=== PATIENT | female | born 1960 | race American Indian/Alaskan Native ===

== ENCOUNTER 2021-07-24 00:08 | Emergency (ER) | payer MEDICAID ==
[~2021-07-24] VITALS: Ht 152.4 cm; Wt 75.0 kg
[2021-07-24 00:13] VITALS: BP 141/86
[2021-07-24] MEDS ORDERED: ondansetron 4mg rapidly disintigrating tab PO ONE (05:10)
[2021-07-24] MEDS ORDERED: buprenorphine/naloxone 8MG-2MG SUBlingual film SL ONE (05:11)
== END 2021-07-24 06:00 | disposition home or self-care (01) ==
LOC: ER 00:09
DX: F15.23 Other stimulant dependence with withdrawal (principal); Z90.49 Acquired absence of other specified parts of digestive tract; Z88.2 Allergy status to sulfonamides; Z88.8 Allergy status to other drugs, medicaments and biological substances
CPT/HCPCS: 99283

== ENCOUNTER 2021-07-29 12:22 | Emergency (ER) | payer MEDICAID ==
[~2021-07-29] VITALS: Ht 152.4 cm; Wt 65.9 kg
[2021-07-29 13:22] VITALS: BP 113/71
[2021-07-29 13:58] LABS: BASOPHILS # (AUTO) 0.1 X10'3 (0-0.2); BASOPHILS % (AUTO) 0.4 % (0-1); EOSINOPHILS # (AUTO) 0.2 X10'3 (0-0.9); EOSINOPHILS % (AUTO) 1.5 % (0-6); HEMATOCRIT 41.4 % (35.0-45.0); HEMOGLOBIN 13.6 g/dl (12.0-16.0); LYMPHOCYTES # (AUTO) 1.3 X10'3 (1.1-4.8); LYMPHOCYTES % (AUTO) 10.6 % (21-51); MEAN CORPUSCULAR HEMOGLOBIN 30.4 PG (27.0-31.0); MEAN CORPUSCULAR HGB CONC 32.8 g/dL (33.0-36.5); MEAN CORPUSCULAR VOLUME 92.9 FL (78-98); MONOCYTES # (AUTO) 0.4 X10'3 (0-0.9); MONOCYTES % (AUTO) 3.5 % (2-12); NEUTROPHILS # (AUTO) 10.3 X10'3 (1.8-7.7); PLATELET COUNT 201 X10'3 (140-440); RED BLOOD COUNT 4.46 X10'6 (4.20-5.60); RED CELL DISTRIBUTION WIDTH 13.3 % (11.5-14.5); WHITE BLOOD COUNT 12.3 X10'3 (4.5-11.0)
[2021-07-29 14:10] LABS: CLARITY,URINE CLEAR (Clear); COLOR,URINE YELLOW (Yellow); GLUCOSE, URINE NEGATIVE (Neg); KETONES,URINE NEGATIVE (Neg); LEUKOCYTE ESTERASE ,URINE TRACE (Neg); NITRITES, URINE NEGATIVE (Neg); OCCULT BLOOD,URINE NEGATIVE (Neg); PROTEIN,URINE NEGATIVE (Neg); URINE HCG NEGATIVE (NEG); UROBILINOGEN,URINE 0.2 E.U/dL (0.2-1.0)
[2021-07-29 14:11] LABS: ALANINE AMINOTRANSFERASE 206 U/L (12-78); ALBUMIN 4.2 G/DL (3.4-5.0); ALBUMIN/GLOBULIN RATIO 1.2 (1.1-1.5); ALKALINE PHOSPHATASE 358 IU/L (46-116); ANION GAP 10 (8-16); ASPARTATE AMINO TRANSFERASE 144 U/L (10-37); BILIRUBIN,TOTAL 1.1 MG/DL (0.1-1.0); BLOOD UREA NITROGEN 24 MG/DL (7-18); BUN/CREATININE RATIO 21.6 (6.6-38.0); CALCIUM 9.6 MG/DL (8.5-10.1); CHLORIDE 100 MMOL/L (99-107); CREATININE 1.11 MG/DL (0.40-0.90); GLUCOSE 101 MG/DL (70-104); LIPASE 65 U/L (73-393); POTASSIUM 4.1 MMOL/L (3.5-5.1); SODIUM 141 MMOL/L (135-145); TOTAL CARBON DIOXIDE 31.3 MMOL/L (24-32); TOTAL PROTEIN 7.7 G/DL (6.4-8.2); eGFR 50 ML/MIN
[2021-07-29 14:17] LABS: UA COLLECTION TYPE CLN CATCH MIDSTREAM
[2021-07-29 14:31] LABS: MUCUS STRANDS FEW /LPF (Neg); SQUAMOUS EPITHELIAL CELL,UR MANY /LPF (FEW)
[2021-07-29 14:32] LABS: BACTERIA,URINE 2+ /HPF (Neg); RBC,URINE 0-2 /HPF (0-2); WBC,URINE 0-4 /HPF (0-4)
[2021-07-29] MEDS ORDERED: ONDA4TAB12 PO (16:41)
[2021-07-29] MEDS ORDERED: ondansetron 4mg rapidly disintigrating tab PO ONE (16:45)
== END 2021-07-29 17:46 | disposition home or self-care (01) ==
LOC: ER 12:22
DX: R11.2 Nausea with vomiting, unspecified (principal); K75.9 Inflammatory liver disease, unspecified; R79.89 Other specified abnormal findings of blood chemistry; R07.89 Other chest pain; F17.200 Nicotine dependence, unspecified, uncomplicated; Z90.49 Acquired absence of other specified parts of digestive tract; Z60.2 Problems related to living alone; Z88.2 Allergy status to sulfonamides; Z88.8 Allergy status to other drugs, medicaments and biological substances; Z79.899 Other long term (current) drug therapy
CPT/HCPCS: 36415; 80053; 81001; 81025; 83690; 85025; 93005; 99284

== ENCOUNTER 2021-09-05 17:27 | Emergency (ER) | payer MEDICAID ==
[~2021-09-05] VITALS: Ht 152.4 cm; Wt 69.5 kg
[~2021-09-05 17:27] MED LIST: ONDA4TAB12 PO
[2021-09-05 18:11] VITALS: BP 126/85
[2021-09-05] MEDS ORDERED: BUPR1FIL3 SL (18:56)
[2021-09-05] MEDS ORDERED: buprenorphine/naloxone 8MG-2MG SUBlingual film SL STA (18:56)
== END 2021-09-05 19:27 | disposition home or self-care (01) ==
LOC: ER 17:28
DX: I50.9 Heart failure, unspecified (principal); Z76.0 Encounter for issue of repeat prescription; Z88.2 Allergy status to sulfonamides; Z88.8 Allergy status to other drugs, medicaments and biological substances
CPT/HCPCS: 99283

== ENCOUNTER → 2021-09-11 | Emergency (ER) | payer MEDICAID | END | disposition left against medical advice (07) | LOC: ER 21:49 | DX: R53.1 Weakness (principal); Z53.21 Procedure and treatment not carried out due to patient leaving prior to being seen by health care provider ==

== ENCOUNTER 2021-10-10 21:53 | Emergency (ER) | payer MEDICAID ==
[~2021-10-10] VITALS: Ht 152.4 cm; Wt 70.5 kg
[2021-10-10 21:58] VITALS: BP 103/52
[2021-10-11] MEDS ORDERED: ketorolac trometh. 30mg/ml inj. IM ONE (03:05)
[2021-10-12] MEDS ORDERED: CEPH-585 PO (15:57)
== END 2021-10-11 03:38 | disposition home or self-care (01) ==
LOC: ER 21:54
DX: G89.29 Other chronic pain (principal); M54.9 Dorsalgia, unspecified; Z88.2 Allergy status to sulfonamides; Z79.899 Other long term (current) drug therapy; Z90.49 Acquired absence of other specified parts of digestive tract
CPT/HCPCS: 96372; 99283; J1885

== ENCOUNTER 2021-10-12 11:36 | Emergency (ER) | payer MEDICAID ==
[~2021-10-12] VITALS: Ht 160 cm; Wt 65.0 kg
[2021-10-12 12:13] LABS: BASOPHILS # (AUTO) 0.1 X10'3 (0-0.2); BASOPHILS % (AUTO) 0.9 % (0-1); EOSINOPHILS # (AUTO) 0.4 X10'3 (0-0.9); EOSINOPHILS % (AUTO) 5.2 % (0-6); HEMATOCRIT 34.3 % (35.0-45.0); HEMOGLOBIN 11.6 g/dl (12.0-16.0); LYMPHOCYTES % (AUTO) 26.9 % (21-51); MEAN CORPUSCULAR HEMOGLOBIN 31.9 PG (27.0-31.0); MEAN CORPUSCULAR HGB CONC 33.8 g/dL (33.0-36.5); MEAN CORPUSCULAR VOLUME 94.4 FL (78-98); MEAN PLATELET VOLUME 9.7 FL (7.4-10.4); MONOCYTES # (AUTO) 0.4 X10'3 (0-0.9); MONOCYTES % (AUTO) 5.8 % (2-12); NEUTROPHILS # (AUTO) 4.5 X10'3 (1.8-7.7); NEUTROPHILS % (AUTO) 61.2 % (42-75); PLATELET COUNT 200 X10'3 (140-440); RED BLOOD COUNT 3.63 X10'6 (4.20-5.60); RED CELL DISTRIBUTION WIDTH 13.7 % (11.5-14.5); WHITE BLOOD COUNT 7.3 X10'3 (4.5-11.0)
[2021-10-12 12:28] LABS: ALANINE AMINOTRANSFERASE 79 U/L (12-78); ALBUMIN 3.5 G/DL (3.4-5.0); ALBUMIN/GLOBULIN RATIO 1.1 (1.1-1.5); ALKALINE PHOSPHATASE 251 IU/L (46-116); ANION GAP 8 (8-16); ASPARTATE AMINO TRANSFERASE 37 U/L (10-37); BILIRUBIN,TOTAL 0.5 MG/DL (0.1-1.0); BLOOD UREA NITROGEN 30 MG/DL (7-18); BUN/CREATININE RATIO 19.4 (6.6-38.0); CALCIUM 8.3 MG/DL (8.5-10.1); CHLORIDE 101 MMOL/L (99-107); CREATININE 1.55 MG/DL (0.40-0.90); GLUCOSE 95 MG/DL (70-104); POTASSIUM 3.9 MMOL/L (3.5-5.1); SODIUM 138 MMOL/L (135-145); TOTAL CARBON DIOXIDE 29.3 MMOL/L (24-32); TOTAL PROTEIN 6.7 G/DL (6.4-8.2); eGFR 34 ML/MIN
[2021-10-12 12:36] LABS: MAGNESIUM 2.1 MG/DL (1.5-2.4)
[2021-10-12] MEDS ORDERED: normal saline 1000ML IV soln IVB ONE (14:35)
[2021-10-12 15:23] LABS: CLARITY,URINE SLIGHTLY CLOUDY (Clear); COLOR,URINE YELLOW (Yellow); GLUCOSE, URINE NEGATIVE (Neg); KETONES,URINE NEGATIVE (Neg); LEUKOCYTE ESTERASE ,URINE TRACE (Neg); NITRITES, URINE NEGATIVE (Neg); OCCULT BLOOD,URINE NEGATIVE (Neg); PH,URINE 5.5 (4.8-8.0); PROTEIN,URINE NEGATIVE (Neg); UROBILINOGEN,URINE 0.2 E.U/dL (0.2-1.0)
[2021-10-12 15:24] LABS: UA COLLECTION TYPE CLN CATCH MIDSTREAM
[2021-10-12 15:29] LABS: MUCUS STRANDS FEW /LPF (Neg); SQUAMOUS EPITHELIAL CELL,UR MODERATE /LPF (FEW)
[2021-10-12 15:30] LABS: BACTERIA,URINE 1+ /HPF (Neg); RBC,URINE 0-2 /HPF (0-2)
[2021-10-12] MEDS ORDERED: CEPH-585 PO (15:57)
[2021-10-12] MEDS ORDERED: cephalexin 250mg capsule PO ONE (16:00)
[2021-10-12 16:24] VITALS: BP 107/68
== END 2021-10-12 16:29 | disposition home or self-care (01) ==
LOC: ER 11:36
DX: N39.0 Urinary tract infection, site not specified (principal); R06.02 Shortness of breath; I50.9 Heart failure, unspecified; N18.9 Chronic kidney disease, unspecified; Z90.49 Acquired absence of other specified parts of digestive tract; Z88.2 Allergy status to sulfonamides; Z88.8 Allergy status to other drugs, medicaments and biological substances; Z79.2 Long term (current) use of antibiotics; Z79.899 Other long term (current) drug therapy
CPT/HCPCS: 36415; 71045; 80053; 81001; 83735; 83880; 84145; 84484; 85025; 87088; 93005; 96360; 99285; J7030; 99284

== ENCOUNTER 2021-10-24 17:07 | Emergency (ER) | payer MEDICAID ==
[~2021-10-24] VITALS: Ht 167.6 cm; Wt 65.9 kg
[~2021-10-24 17:07] MED LIST changes: +CEPH-585 PO
[2021-10-24 18:50] LABS: BASOPHILS % (AUTO) 0.4 % (0-1); EOSINOPHILS # (AUTO) 0.2 X10'3 (0-0.9); HEMATOCRIT 39.3 % (35.0-45.0); HEMOGLOBIN 13.2 g/dl (12.0-16.0); LYMPHOCYTES # (AUTO) 1.4 X10'3 (1.1-4.8); LYMPHOCYTES % (AUTO) 12.3 % (21-51); MEAN CORPUSCULAR HEMOGLOBIN 31.8 PG (27.0-31.0); MEAN CORPUSCULAR HGB CONC 33.6 g/dL (33.0-36.5); MEAN CORPUSCULAR VOLUME 94.6 FL (78-98); MEAN PLATELET VOLUME 10.2 FL (7.4-10.4); MONOCYTES # (AUTO) 0.5 X10'3 (0-0.9); NEUTROPHILS # (AUTO) 9.4 X10'3 (1.8-7.7); NEUTROPHILS % (AUTO) 81.3 % (42-75); PLATELET COUNT 167 X10'3 (140-440); RED BLOOD COUNT 4.15 X10'6 (4.20-5.60); WHITE BLOOD COUNT 11.6 X10'3 (4.5-11.0)
[2021-10-24 19:16] LABS: ALANINE AMINOTRANSFERASE 77 U/L (12-78); ALBUMIN 3.9 G/DL (3.4-5.0); ALBUMIN/GLOBULIN RATIO 1.1 (1.1-1.5); ALKALINE PHOSPHATASE 282 IU/L (46-116); ANION GAP 10 (8-16); ASPARTATE AMINO TRANSFERASE 56 U/L (10-37); BILIRUBIN,TOTAL 0.5 MG/DL (0.1-1.0); BLOOD UREA NITROGEN 29 MG/DL (7-18); BUN/CREATININE RATIO 18.1 (6.6-38.0); CALCIUM 9.1 MG/DL (8.5-10.1); CHLORIDE 100 MMOL/L (99-107); GLUCOSE 124 MG/DL (70-104); SODIUM 140 MMOL/L (135-145); TOTAL CARBON DIOXIDE 29.9 MMOL/L (24-32); TOTAL PROTEIN 7.4 G/DL (6.4-8.2); eGFR 33 ML/MIN
[2021-10-24 19:24] LABS: CREATINE KINASE 178 U/L (26-192)
[2021-10-24 19:30] LABS: ETHANOL < 0.010 GM/DL (0.0-0.010)
[2021-10-24] MEDS ORDERED: normal saline 1000ML IV soln IVB ONE (20:10)
[2021-10-24 20:27] LABS: URINE AMPHETAMINE SCREEN NEGATIVE (Neg); URINE BARBITUATE SCREEN NEGATIVE (Neg); URINE BENZODIAZEPINES SCREEN NEGATIVE (Neg); URINE CANNABINOID SCREEN POSITIVE (Neg); URINE COCAINE SCREEN NEGATIVE (Neg); URINE METHADONE SCREEN NEGATIVE (Neg); URINE OPIATE SCREEN NEGATIVE (Neg); URINE PHENCYCLIDINE SCREEN NEGATIVE (Neg)
[2021-10-24 20:31] LABS: CLARITY,URINE CLEAR (Clear); GLUCOSE, URINE NEGATIVE (Neg); KETONES,URINE NEGATIVE (Neg); LEUKOCYTE ESTERASE ,URINE NEGATIVE (Neg); NITRITES, URINE NEGATIVE (Neg); OCCULT BLOOD,URINE NEGATIVE (Neg); PH,URINE 6.5 (4.8-8.0); PROTEIN,URINE NEGATIVE (Neg); UROBILINOGEN,URINE 0.2 E.U/dL (0.2-1.0)
[2021-10-24 20:32] LABS: COLOR,URINE YELLOW (Yellow); UA COLLECTION TYPE CLN CATCH MIDSTREAM
[2021-10-25 01:09] VITALS: BP 102/58
== END 2021-10-25 01:16 | disposition home or self-care (01) ==
LOC: ER 17:07
DX: R53.1 Weakness (principal); R11.10 Vomiting, unspecified; N18.9 Chronic kidney disease, unspecified; F12.90 Cannabis use, unspecified, uncomplicated; Z88.2 Allergy status to sulfonamides; Z88.8 Allergy status to other drugs, medicaments and biological substances; Z90.49 Acquired absence of other specified parts of digestive tract
CPT/HCPCS: 36415; 71045; 80053; 80305; 80320; 81003; 82550; 82948; 83880; 84484; 85025; 93005; 99285; C1758; J7030

== ENCOUNTER 2021-11-03 20:18 | Emergency (ER) | payer MEDICAID ==
[~2021-11-03] VITALS: Ht 152.4 cm; Wt 69.2 kg
[2021-11-03 20:28] VITALS: BP 130/55
[2021-11-03] MEDS ORDERED: buprenorphine/naloxone 8MG-2MG SUBlingual film SL ONE (21:50)
[2021-11-03] MEDS ORDERED: baclofen 10mg tablet PO PRN (21:50)
== END 2021-11-03 22:05 | disposition home or self-care (01) ==
LOC: ER 20:19
DX: F11.10 Opioid abuse, uncomplicated (principal); F10.920 Alcohol use, unspecified with intoxication, uncomplicated; Z76.0 Encounter for issue of repeat prescription; I50.9 Heart failure, unspecified; N18.9 Chronic kidney disease, unspecified; Z90.49 Acquired absence of other specified parts of digestive tract
CPT/HCPCS: 99283

== ENCOUNTER 2021-12-11 12:48 | Emergency (ER) | payer MEDICAID ==
[~2021-12-11] VITALS: Ht 152.4 cm; Wt 77.3 kg
[2021-12-11] MEDS ORDERED: furosemide 10 MG/1 ML 10ml inj IV ONE (13:00)
[2021-12-11 13:36] LABS: BASOPHILS # (AUTO) 0.1 X10'3 (0-0.2); BASOPHILS % (AUTO) 1.2 % (0-1); EOSINOPHILS # (AUTO) 0.5 X10'3 (0-0.9); EOSINOPHILS % (AUTO) 5.4 % (0-6); HEMATOCRIT 35.9 % (35.0-45.0); HEMOGLOBIN 12.4 g/dl (12.0-16.0); LYMPHOCYTES # (AUTO) 2.2 X10'3 (1.1-4.8); LYMPHOCYTES % (AUTO) 25.6 % (21-51); MEAN CORPUSCULAR HEMOGLOBIN 32.5 PG (27.0-31.0); MEAN CORPUSCULAR HGB CONC 34.5 g/dL (33.0-36.5); MEAN CORPUSCULAR VOLUME 93.9 FL (78-98); MONOCYTES # (AUTO) 0.7 X10'3 (0-0.9); MONOCYTES % (AUTO) 7.6 % (2-12); NEUTROPHILS # (AUTO) 5.3 X10'3 (1.8-7.7); NEUTROPHILS % (AUTO) 60.2 % (42-75); PLATELET COUNT 181 X10'3 (140-440); RED BLOOD COUNT 3.82 X10'6 (4.20-5.60); RED CELL DISTRIBUTION WIDTH 13.4 % (11.5-14.5); WHITE BLOOD COUNT 8.7 X10'3 (4.5-11.0)
[2021-12-11 13:51] LABS: ALANINE AMINOTRANSFERASE 61 U/L (12-78); ALBUMIN 3.5 G/DL (3.4-5.0); ALBUMIN/GLOBULIN RATIO 1.1 (1.1-1.5); ALKALINE PHOSPHATASE 161 IU/L (46-116); ANION GAP 6 (8-16); ASPARTATE AMINO TRANSFERASE 43 U/L (10-37); BILIRUBIN,TOTAL 0.5 MG/DL (0.1-1.0); BLOOD UREA NITROGEN 20 MG/DL (7-18); BUN/CREATININE RATIO 19.6 (6.6-38.0); CALCIUM 8.9 MG/DL (8.5-10.1); CHLORIDE 99 MMOL/L (99-107); CREATININE 1.02 MG/DL (0.40-0.90); GLUCOSE 99 MG/DL (70-104); POTASSIUM 4.3 MMOL/L (3.5-5.1); SODIUM 135 MMOL/L (135-145); TOTAL PROTEIN 6.7 G/DL (6.4-8.2); eGFR 55 ML/MIN
[2021-12-11 13:59] LABS: ETHANOL < 0.010 GM/DL (0.0-0.010)
[2021-12-11 14:46] VITALS: BP 122/66
== END 2021-12-11 14:49 | disposition home or self-care (01) ==
LOC: ER 12:48
DX: I50.9 Heart failure, unspecified (principal); M79.89 Other specified soft tissue disorders; R06.02 Shortness of breath; N18.9 Chronic kidney disease, unspecified; F17.200 Nicotine dependence, unspecified, uncomplicated; Z60.2 Problems related to living alone; Z90.49 Acquired absence of other specified parts of digestive tract; Z88.2 Allergy status to sulfonamides; Z88.8 Allergy status to other drugs, medicaments and biological substances; Z79.2 Long term (current) use of antibiotics
CPT/HCPCS: 36415; 71045; 80053; 80320; 83880; 84484; 85025; 96374; 99284; J1940

== ENCOUNTER 2021-12-17 12:46 | Emergency (ER) | payer MEDICAID ==
[~2021-12-17] VITALS: Ht 152.4 cm; Wt 70.5 kg
[2021-12-17 15:09] VITALS: BP 174/71
--- NOTE | 2021-12-17 15:12 | NUR ---
PT C/O NOT FEELING RIGHT INCRASED ABD PAIN AND REQUESTS TO HAVE VS RE CHECKED. BP AND HR HAVE INCREASED SINCE TRIAGE. ABD PAIN PROTOCOL ORDERED
[2021-12-17 15:44] LABS: BASOPHILS % (AUTO) 0.3 % (0-1); EOSINOPHILS # (AUTO) 0.3 X10'3 (0-0.9); EOSINOPHILS % (AUTO) 2.7 % (0-6); HEMATOCRIT 39.4 % (35.0-45.0); HEMOGLOBIN 13.2 g/dl (12.0-16.0); LYMPHOCYTES # (AUTO) 1.8 X10'3 (1.1-4.8); LYMPHOCYTES % (AUTO) 16.8 % (21-51); MEAN CORPUSCULAR HEMOGLOBIN 31.9 PG (27.0-31.0); MEAN CORPUSCULAR HGB CONC 33.5 g/dL (33.0-36.5); MEAN CORPUSCULAR VOLUME 95.5 FL (78-98); MEAN PLATELET VOLUME 9.3 FL (7.4-10.4); MONOCYTES # (AUTO) 0.5 X10'3 (0-0.9); MONOCYTES % (AUTO) 4.4 % (2-12); NEUTROPHILS # (AUTO) 8.1 X10'3 (1.8-7.7); NEUTROPHILS % (AUTO) 75.8 % (42-75); PLATELET COUNT 199 X10'3 (140-440); RED BLOOD COUNT 4.13 X10'6 (4.20-5.60); RED CELL DISTRIBUTION WIDTH 13.5 % (11.5-14.5); WHITE BLOOD COUNT 10.7 X10'3 (4.5-11.0)
[2021-12-17 15:51] LABS: ALANINE AMINOTRANSFERASE 45 U/L (12-78); ALBUMIN 3.6 G/DL (3.4-5.0); ALKALINE PHOSPHATASE 152 IU/L (46-116); ANION GAP 11 (8-16); ASPARTATE AMINO TRANSFERASE 37 U/L (10-37); BILIRUBIN,TOTAL 0.3 MG/DL (0.1-1.0); BLOOD UREA NITROGEN 17 MG/DL (7-18); BUN/CREATININE RATIO 18.5 (6.6-38.0); CALCIUM 9.3 MG/DL (8.5-10.1); CHLORIDE 99 MMOL/L (99-107); CREATININE 0.92 MG/DL (0.40-0.90); GLUCOSE 170 MG/DL (70-104); POTASSIUM 3.4 MMOL/L (3.5-5.1); SODIUM 136 MMOL/L (135-145); TOTAL CARBON DIOXIDE 26.5 MMOL/L (24-32); TOTAL PROTEIN 7.1 G/DL (6.4-8.2); eGFR 62 ML/MIN
[2021-12-17] MEDS ORDERED: POTASSIUM BICARB 20meq eff tab 20 MEQ TABLET.EFF PO ONE (17:50)
[2021-12-17 17:54] LABS: URINE HCG NEGATIVE (NEG)
[2021-12-17 18:11] LABS: CLARITY,URINE SLIGHTLY CLOUDY (Clear); GLUCOSE, URINE NEGATIVE (Neg); KETONES,URINE NEGATIVE (Neg); LEUKOCYTE ESTERASE ,URINE TRACE (Neg); NITRITES, URINE NEGATIVE (Neg); OCCULT BLOOD,URINE NEGATIVE (Neg); PROTEIN,URINE NEGATIVE (Neg); UROBILINOGEN,URINE 0.2 E.U/dL (0.2-1.0)
[2021-12-17 18:30] LABS: URINE AMPHETAMINE SCREEN NEGATIVE (Neg); URINE BARBITUATE SCREEN NEGATIVE (Neg); URINE BENZODIAZEPINES SCREEN NEGATIVE (Neg); URINE CANNABINOID SCREEN NEGATIVE (Neg); URINE COCAINE SCREEN NEGATIVE (Neg); URINE METHADONE SCREEN NEGATIVE (Neg); URINE OPIATE SCREEN NEGATIVE (Neg); URINE PHENCYCLIDINE SCREEN NEGATIVE (Neg)
[2021-12-17 18:31] LABS: COLOR,URINE STRAW (Yellow); UA COLLECTION TYPE NON-SPECIFIED
[2021-12-17 18:32] LABS: TRANSITIONAL EPI CELLS,URINE FEW /HPF
[2021-12-17 18:33] LABS: BACTERIA,URINE FEW /HPF (Neg); MUCUS STRANDS FEW /LPF (Neg); RBC,URINE 0-2 /HPF (0-2); SQUAMOUS EPITHELIAL CELL,UR MODERATE /LPF (FEW); WBC,URINE 0-4 /HPF (0-4)
[2021-12-17] MEDS ORDERED: cephalexin 500mg capsule PO ONE (18:40)
[2021-12-17] MEDS ORDERED: CEPH500C2 PO (18:45)
== END 2021-12-17 19:05 | disposition home or self-care (01) ==
LOC: ER 12:46
DX: N39.0 Urinary tract infection, site not specified (principal); R53.1 Weakness; R10.31 Right lower quadrant pain; R10.32 Left lower quadrant pain; I50.9 Heart failure, unspecified; Z90.49 Acquired absence of other specified parts of digestive tract; Z60.2 Problems related to living alone; Z88.2 Allergy status to sulfonamides; Z88.8 Allergy status to other drugs, medicaments and biological substances; Z79.2 Long term (current) use of antibiotics
CPT/HCPCS: 36415; 71045; 80053; 80305; 81001; 81025; 83880; 84484; 85025; 87088; 93005; 99285

== ENCOUNTER 2022-05-31 17:09 | Emergency (ER) | payer MEDICAID ==
[~2022-05-31] VITALS: Ht 152.4 cm; Wt 86.2 kg
[2022-05-31 17:58] LABS: BASOPHILS % (AUTO) 0.4 % (0-1); EOSINOPHILS # (AUTO) 0.4 X10'3 (0-0.9); EOSINOPHILS % (AUTO) 4.1 % (0-6); HEMATOCRIT 39.5 % (35.0-45.0); HEMOGLOBIN 13.2 g/dl (12.0-16.0); LYMPHOCYTES # (AUTO) 2.5 X10'3 (1.1-4.8); LYMPHOCYTES % (AUTO) 26.7 % (21-51); MEAN CORPUSCULAR HEMOGLOBIN 30.9 PG (27.0-31.0); MEAN CORPUSCULAR HGB CONC 33.3 g/dL (33.0-36.5); MEAN CORPUSCULAR VOLUME 92.7 FL (78-98); MEAN PLATELET VOLUME 9.8 FL (7.4-10.4); MONOCYTES # (AUTO) 0.5 X10'3 (0-0.9); MONOCYTES % (AUTO) 5.4 % (2-12); NEUTROPHILS % (AUTO) 63.4 % (42-75); PLATELET COUNT 171 X10'3 (140-440); RED BLOOD COUNT 4.26 X10'6 (4.20-5.60); RED CELL DISTRIBUTION WIDTH 16.8 % (11.5-14.5); WHITE BLOOD COUNT 9.4 X10'3 (4.5-11.0)
[2022-05-31 18:06] LABS: ALANINE AMINOTRANSFERASE 25 U/L (12-78); ALBUMIN 3.3 G/DL (3.4-5.0); ALBUMIN/GLOBULIN RATIO 0.9 (1.1-1.5); ALKALINE PHOSPHATASE 171 IU/L (46-116); ANION GAP 6 (8-16); ASPARTATE AMINO TRANSFERASE 22 U/L (10-37); BILIRUBIN,TOTAL 0.4 MG/DL (0.1-1.0); BLOOD UREA NITROGEN 11 MG/DL (7-18); BUN/CREATININE RATIO 10.6 (10.0-20.0); CALCIUM 8.8 MG/DL (8.5-10.1); CHLORIDE 100 MMOL/L (99-107); CREATININE 1.04 MG/DL (0.40-0.90); GLUCOSE 100 MG/DL (70-104); POTASSIUM 3.4 MMOL/L (3.5-5.1); SODIUM 139 MMOL/L (135-145); TOTAL CARBON DIOXIDE 33.3 MMOL/L (24-32); TOTAL PROTEIN 6.8 G/DL (6.4-8.2); eGFR 54 ML/MIN
--- NOTE | 2022-05-31 20:56 | NUR ---
Patient informed registration that she was back in the lobby.
[2022-05-31] MEDS ORDERED: traMADol 50MG tablet PO ONE (23:40)
[2022-06-01] VITALS: BP 128/72
== END 2022-06-01 00:01 | disposition home or self-care (01) ==
LOC: ER 17:10
DX: R60.0 Localized edema (principal); I50.9 Heart failure, unspecified; N18.9 Chronic kidney disease, unspecified; Z90.49 Acquired absence of other specified parts of digestive tract; Z60.2 Problems related to living alone; Z88.2 Allergy status to sulfonamides; Z79.899 Other long term (current) drug therapy
CPT/HCPCS: 36415; 71045; 80053; 83880; 84484; 85025; 93005; 93971; 99285

== ENCOUNTER 2022-06-05 13:43 | Inpatient (IN) | payer MEDICAID ==
[~2022-06-05] VITALS: Ht 152.4 cm; Wt 85.2 kg
[2022-06-05 13:59] LABS: BASOPHILS # (AUTO) 0.1 X10'3 (0-0.2); BASOPHILS % (AUTO) 0.6 % (0-1); EOSINOPHILS # (AUTO) 0.2 X10'3 (0-0.9); EOSINOPHILS % (AUTO) 2.1 % (0-6); HEMATOCRIT 39.5 % (35.0-45.0); HEMOGLOBIN 13.2 g/dl (12.0-16.0); LYMPHOCYTES # (AUTO) 1.8 X10'3 (1.1-4.8); LYMPHOCYTES % (AUTO) 16.9 % (21-51); MEAN CORPUSCULAR HEMOGLOBIN 30.8 PG (27.0-31.0); MEAN CORPUSCULAR HGB CONC 33.4 g/dL (33.0-36.5); MEAN CORPUSCULAR VOLUME 92.2 FL (78-98); MEAN PLATELET VOLUME 9.4 FL (7.4-10.4); MONOCYTES # (AUTO) 0.8 X10'3 (0-0.9); MONOCYTES % (AUTO) 7.1 % (2-12); NEUTROPHILS # (AUTO) 7.9 X10'3 (1.8-7.7); NEUTROPHILS % (AUTO) 73.3 % (42-75); PLATELET COUNT 199 X10'3 (140-440); RED BLOOD COUNT 4.28 X10'6 (4.20-5.60); RED CELL DISTRIBUTION WIDTH 16.7 % (11.5-14.5); WHITE BLOOD COUNT 10.8 X10'3 (4.5-11.0)
[2022-06-05 14:17] LABS: ALANINE AMINOTRANSFERASE 28 U/L (12-78); ALBUMIN 3.5 G/DL (3.4-5.0); ALKALINE PHOSPHATASE 157 IU/L (46-116); ANION GAP 12 (8-16); ASPARTATE AMINO TRANSFERASE 27 U/L (10-37); BILIRUBIN,TOTAL 0.5 MG/DL (0.1-1.0); BLOOD UREA NITROGEN 50 MG/DL (7-18); BUN/CREATININE RATIO 19.5 (10.0-20.0); CALCIUM 9.1 MG/DL (8.5-10.1); CHLORIDE 91 MMOL/L (99-107); CREATININE 2.56 MG/DL (0.40-0.90); GLUCOSE 116 MG/DL (70-104); POTASSIUM 4.1 MMOL/L (3.5-5.1); SODIUM 130 MMOL/L (135-145); TOTAL CARBON DIOXIDE 26.9 MMOL/L (24-32); eGFR 19 ML/MIN
--- NOTE | 2022-06-05 14:20 | NUR ---
pt sbp down to the 70's, provider was made aware. verbal order for 2L NS given and administered.
[2022-06-05 14:26] LABS: MAGNESIUM 1.8 MG/DL (1.5-2.4)
--- NOTE | 2022-06-05 14:30 | NUR ---
pt's breathing very diminished and is incoherent, provider was made aware.
--- NOTE | 2022-06-05 14:32 | NUR ---
provider at the bedside at this time, verbal order for 2mg of naloxone was given and administered.
[2022-06-05] MEDS ORDERED: naloxone 2mg/2ml inj IV STA (14:35)
[2022-06-05] MEDS ORDERED: naloxone 2mg/2ml inj ONE (14:37)
--- NOTE | 2022-06-05 14:38 | NUR ---
naloxone was given, pt aroused after administration.
--- NOTE | 2022-06-05 14:44 | NUR ---
RN NOTIFIED SLATE WORKER THAT PT IS POSSIBLE OD AND IS HYPOTENSIVE TO REQUEST ASSISTANCE WITH OTHER PTS.
--- NOTE | 2022-06-05 14:50 | NUR ---
PT SIGNIFICANT OTHER ARRIVED TO ROOM AND STAYED FOR A SHORT TIME. HE GAVE RN HIS INFO TO CALL HIM AND UPDATE HIM. INFO IS SABI DOMINGUEZ [phone].
[2022-06-05] MEDS ORDERED: normal saline 1000ml 1,000 ML IV ONE ×3 (15:15)
[2022-06-05] MEDS ORDERED: diphenhydrAMINE 50 mg/ml inj IV ONE ×2 (15:15→19:25)
[2022-06-05] MEDS ORDERED: CefTRIAXone 2gm/D5W 50ml BAG 50 ML IV ONE (15:35)
[2022-06-05] MEDS ORDERED: VANCOmycin 1250MG/NS 250ml Bag 250 ML IV ONE (15:36)
[2022-06-05 15:56] LABS: CLARITY,URINE CLOUDY (Clear); COLOR,URINE YELLOW (Yellow); GLUCOSE, URINE NEGATIVE (Neg); KETONES,URINE TRACE mg/dl (Neg); LEUKOCYTE ESTERASE ,URINE TRACE (Neg); NITRITES, URINE NEGATIVE (Neg); OCCULT BLOOD,URINE MODERATE (Neg); PH,URINE 6.5 (4.8-8.0); PROTEIN,URINE 30 mg/dl (Neg); UROBILINOGEN,URINE 0.2 E.U/dL (0.2-1.0)
[2022-06-05 16:03] LABS: LIPASE 87 U/L (73-393)
[2022-06-05 16:09] LABS: UA COLLECTION TYPE STRAIGHT CATH
[2022-06-05 16:10] LABS: HYALINE CASTS >30 /LPF (NEGATIVE); SQUAMOUS EPITHELIAL CELL,UR MANY /LPF (FEW); WBC,URINE 30-50 /HPF (0-4)
[2022-06-05 16:11] LABS: BACTERIA,URINE 2+ /HPF (Neg); TRANSITIONAL EPI CELLS,URINE FEW /HPF
[2022-06-05] MEDS ORDERED: NORepinephrine inj. 32 MG in normal saline 250ml IV soln 218 ML IV SCH (16:30)
[2022-06-05] MEDS: NORepinephrine 8mg/ 250ml NS 250 ML IV SCH (16:40)
[2022-06-05] MEDS ORDERED: morphine 4 MG/ML inj SYRINge IV ONE (16:55)
[2022-06-05] MEDS ORDERED: ondansetron/PF 4mg/2ml inj IV ONE (16:55)
--- NOTE | 2022-06-05 17:10 | NUR ---
notified ct that pt is stable for a scan
--- NOTE | 2022-06-05 17:18 | NUR ---
out to ct
--- NOTE | 2022-06-05 17:25 | NUR ---
returns from ct
--- NOTE | 2022-06-05 17:30 | NUR ---
sbp 123, titrated down to 0.4mcg/kg/min per protocol
--- NOTE | 2022-06-05 17:57 | NUR ---
advised the provider about the sbp of 104 at 0.4mcg/kg/min of levophed, provider then advised to maintain that dosage at this time.
--- NOTE | 2022-06-05 19:37 | NUR ---
IV site in Rt AC, and forearm is red and irritated, patient scratching at area, IV pelono stopped and MD notified. New order for IV Benadryl 25 mg and lower rate on vancomycin.
[2022-06-05 22:43] LABS: URINE AMPHETAMINE SCREEN NEGATIVE (Neg); URINE BARBITUATE SCREEN NEGATIVE (Neg); URINE BENZODIAZEPINES SCREEN NEGATIVE (Neg); URINE CANNABINOID SCREEN NEGATIVE (Neg); URINE COCAINE SCREEN NEGATIVE (Neg); URINE METHADONE SCREEN NEGATIVE (Neg); URINE OPIATE SCREEN POSITIVE (Neg); URINE PHENCYCLIDINE SCREEN NEGATIVE (Neg)
[2022-06-05] MEDS ORDERED: mag hydrox/Alum hydrox/simeth 30ml oral suspension PO PRN (23:50)
[2022-06-05] MEDS ORDERED: magnesium hydroxide 30ml (MOM) UD suspension PO PRN (23:50)
[2022-06-05] MEDS ORDERED: potassium Cl 40MEQ/1/2NS 520ml 520 ML IV PRN (23:50)
[2022-06-05] MEDS ORDERED: magnesium Cl slow-release 64mg tablet PO PRN (23:50)
[2022-06-05] MEDS ORDERED: ondansetron/PF 4mg/2ml inj IV PRN (23:50)
[2022-06-05] MEDS ORDERED: magnesium 4gm in 100ml NS 100 ML IV PRN (23:50)
[2022-06-05] MEDS ORDERED: potassium Cl 20 mEq SR tablet PO PRN ×2 (23:50)
[2022-06-05] MEDS ORDERED: acetaminophen 325mg tablet PO PRN (23:50)
[2022-06-06] VITALS (22 sets, daily range): BP systolic 100–138; BP diastolic 46–70
[2022-06-06] MEDS ORDERED: LISI10TA27 (02:50)
[2022-06-06] MEDS ORDERED: ATOR10TA70 PO (02:50)
[2022-06-06] MEDS ORDERED: BUPR1FIL20 SL (02:50)
[2022-06-06] MEDS ORDERED: POTA-208 (02:50)
[2022-06-06] MEDS ORDERED: METO5TAB7 PO (02:50)
[2022-06-06] MEDS ORDERED: DOXE10CA3 PO (02:50)
[2022-06-06] MEDS ORDERED: DILT-35 PO (02:50)
[2022-06-06] MEDS ORDERED: FURO40TA4 PO (02:50)
[2022-06-06] MEDS ORDERED: METO25TA6 (02:50)
[2022-06-06] MEDS ORDERED: FLUT16SP26 (02:50)
[2022-06-06] MEDS ORDERED: BACL10TA2 PO (02:50)
[2022-06-06] MEDS ORDERED: ALLO100T PO (02:50)
[2022-06-06] MEDS ORDERED: PALI3TAB5 PO (02:50)
[2022-06-06] MEDS ORDERED: SPIR100T5 PO (02:50)
[2022-06-06 03:19] LABS: BASOPHILS % (AUTO) 0.2 % (0-1); EOSINOPHILS # (AUTO) 0.2 X10'3 (0-0.9); EOSINOPHILS % (AUTO) 1.5 % (0-6); HEMATOCRIT 38.8 % (35.0-45.0); HEMOGLOBIN 12.8 g/dl (12.0-16.0); LYMPHOCYTES # (AUTO) 1.9 X10'3 (1.1-4.8); LYMPHOCYTES % (AUTO) 12.8 % (21-51); MEAN CORPUSCULAR HEMOGLOBIN 30.5 PG (27.0-31.0); MEAN CORPUSCULAR HGB CONC 32.9 g/dL (33.0-36.5); MEAN CORPUSCULAR VOLUME 92.5 FL (78-98); MEAN PLATELET VOLUME 10.1 FL (7.4-10.4); MONOCYTES % (AUTO) 6.9 % (2-12); NEUTROPHILS # (AUTO) 11.5 X10'3 (1.8-7.7); NEUTROPHILS % (AUTO) 78.6 % (42-75); PLATELET COUNT 195 X10'3 (140-440); WHITE BLOOD COUNT 14.6 X10'3 (4.5-11.0)
[2022-06-06 03:36] LABS: ALANINE AMINOTRANSFERASE 27 U/L (12-78); ALBUMIN 3.2 G/DL (3.4-5.0); ALBUMIN/GLOBULIN RATIO 0.9 (1.1-1.5); ALKALINE PHOSPHATASE 150 IU/L (46-116); ANION GAP 6 (8-16); ASPARTATE AMINO TRANSFERASE 23 U/L (10-37); BILIRUBIN,TOTAL 0.4 MG/DL (0.1-1.0); BLOOD UREA NITROGEN 43 MG/DL (7-18); BUN/CREATININE RATIO 24.6 (10.0-20.0); CALCIUM 8.5 MG/DL (8.5-10.1); CHLORIDE 101 MMOL/L (99-107); CREATININE 1.75 MG/DL (0.40-0.90); GLUCOSE 137 MG/DL (70-104); MAGNESIUM 2.1 MG/DL (1.5-2.4); PHOSPHORUS 5.8 MG/DL (2.3-4.5); POTASSIUM 3.9 MMOL/L (3.5-5.1); SODIUM 135 MMOL/L (135-145); TOTAL CARBON DIOXIDE 27.8 MMOL/L (24-32); TOTAL PROTEIN 6.7 G/DL (6.4-8.2); eGFR 30 ML/MIN
[2022-06-06] MEDS: normal saline 1000ml 1,000 ML IV SCH ×2 (04:58→06:30)
[2022-06-06] MEDS: NORepinephrine 8mg/ 250ml NS 250 ML IV SCH ×2 (04:59→07:55)
--- NOTE | 2022-06-06 06:22 | NUR ---
Problems reprioritized. Patient report given, questions answered & plan of care reviewed with CHACORTA WALLS.
--- NOTE | 2022-06-06 06:30 | NUR ---
Patient in room CICU 2011. I have received report from Jhoana WALLS and had the opportunity to ask questions and assume patient care.
[2022-06-06] MEDS: K and/or MAG REPLACEMENT MC SCH ×2 (07:31→20:00)
[2022-06-06] MEDS: docusate sod 100mg capsule PO SCH ×2 (07:58→20:34)
--- NOTE | 2022-06-06 08:16 | NUR ---
Pain Pt complaining of pain between her shoulder blades and in her left arm and asked for food. Breakfast provided & tolerated well.
[2022-06-06] MEDS ORDERED: acetaminophen 325mg tablet PO PRN (11:55)
[2022-06-06] MEDS ORDERED: HYDROmorphone 2mg tablet PO PRN (16:15)
[2022-06-06] MEDS: CefTRIAXone/D5W-Rocephin 1gm 50 ML IV SCH (16:48)
--- NOTE | 2022-06-06 18:17 | NUR ---
Problems reprioritized. Patient report given, questions answered & plan of care reviewed with Jhoana WALLS.
[2022-06-06] MEDS: HYDROmorphone 2mg tablet PO PRN (18:42)
[2022-06-06] MEDS: baclofen 10mg tablet PO SCH (20:34)
[2022-06-06] MEDS: allopurinol 100mg tablet PO SCH (20:34)
[2022-06-06] MEDS: doxepin 10mg capsule PO SCH (20:35)
[2022-06-07] VITALS (24 sets, daily range): BP systolic 123–192; BP diastolic 60–146
[2022-06-07 03:16] LABS: BASOPHILS % (AUTO) 0.3 % (0-1); EOSINOPHILS # (AUTO) 0.4 X10'3 (0-0.9); HEMATOCRIT 34.6 % (35.0-45.0); HEMOGLOBIN 11.4 g/dl (12.0-16.0); LYMPHOCYTES # (AUTO) 1.8 X10'3 (1.1-4.8); LYMPHOCYTES % (AUTO) 21.3 % (21-51); MEAN CORPUSCULAR HEMOGLOBIN 30.8 PG (27.0-31.0); MEAN CORPUSCULAR HGB CONC 32.9 g/dL (33.0-36.5); MEAN CORPUSCULAR VOLUME 93.5 FL (78-98); MEAN PLATELET VOLUME 9.8 FL (7.4-10.4); MONOCYTES # (AUTO) 0.6 X10'3 (0-0.9); MONOCYTES % (AUTO) 7.1 % (2-12); NEUTROPHILS # (AUTO) 5.5 X10'3 (1.8-7.7); NEUTROPHILS % (AUTO) 66.3 % (42-75); PLATELET COUNT 164 X10'3 (140-440); RED CELL DISTRIBUTION WIDTH 16.9 % (11.5-14.5); WHITE BLOOD COUNT 8.3 X10'3 (4.5-11.0)
[2022-06-07 03:17] LABS: APTT 26 SECONDS (22-32)
[2022-06-07 03:29] LABS: ALANINE AMINOTRANSFERASE 23 U/L (12-78); ALBUMIN/GLOBULIN RATIO 0.9 (1.1-1.5); ALKALINE PHOSPHATASE 137 IU/L (46-116); ANION GAP 4 (8-16); ASPARTATE AMINO TRANSFERASE 16 U/L (10-37); BILIRUBIN,TOTAL 0.3 MG/DL (0.1-1.0); BLOOD UREA NITROGEN 30 MG/DL (7-18); CALCIUM 8.7 MG/DL (8.5-10.1); CHLORIDE 102 MMOL/L (99-107); CREATININE 0.91 MG/DL (0.40-0.90); GLUCOSE 115 MG/DL (70-104); MAGNESIUM 2.1 MG/DL (1.5-2.4); PHOSPHORUS 3.4 MG/DL (2.3-4.5); POTASSIUM 4.1 MMOL/L (3.5-5.1); SODIUM 135 MMOL/L (135-145); TOTAL CARBON DIOXIDE 28.6 MMOL/L (24-32); TOTAL PROTEIN 6.2 G/DL (6.4-8.2); eGFR 63 ML/MIN
--- NOTE | 2022-06-07 06:30 | NUR ---
Problems reprioritized. Patient report given, questions answered & plan of care reviewed with NATANAEL WALLS.
[2022-06-07] MEDS: HYDROmorphone 2mg tablet PO PRN (07:14)
--- NOTE | 2022-06-07 07:26 | NUR ---
Patient in room CICU 2011. I have received report from Jhoana WALLS and had the opportunity to ask questions and assume patient care.
[2022-06-07] MEDS: K and/or MAG REPLACEMENT MC SCH ×2 (08:00→18:36)
[2022-06-07] MEDS: allopurinol 100mg tablet PO SCH (08:48)
[2022-06-07] MEDS: baclofen 10mg tablet PO SCH ×3 (08:50→20:52)
[2022-06-07] MEDS: docusate sod 100mg capsule PO SCH ×2 (08:50→20:52)
[2022-06-07] MEDS: atorvastatin 10mg tablet PO SCH (08:50)
[2022-06-07] MEDS: PALIPERIDONE 3 MG TAB.ER.24 PO SCH (08:50)
[2022-06-07] MEDS: diltiazem CD 120mg capsule (once-daily) PO SCH (08:50)
[2022-06-07] MEDS: HYDROmorphone 1mg tablet (1/2 of 2mg tablet) PO PRN ×3 (12:01→21:49)
[2022-06-07] MEDS: CefTRIAXone/D5W-Rocephin 1gm 50 ML IV SCH (14:35)
[2022-06-07] MEDS: NORepinephrine 8mg/ 250ml NS 250 ML IV SCH (14:43)
--- NOTE | 2022-06-07 18:01 | NUR ---
called Dr Virk in regards to patients increasing blood pressure new orders; hydralazine 10mg Q4 PRN SBP greater than 160 metropolol 25mg po Q6 scheduled
[2022-06-07] MEDS ORDERED: hydrALAZINE 20mg/ml inj. IV PRN (18:05)
--- NOTE | 2022-06-07 18:20 | NUR ---
Problems reprioritized. Patient report given, questions answered & plan of care reviewed with Avis WALLS.
--- NOTE | 2022-06-07 18:30 | NUR ---
Patient in room CICU 2011. I have received report from TITI De La O and had the opportunity to ask questions and assume patient care.
[2022-06-07] MEDS: metoprolol tartrate 25mg tablet PO SCH (20:52)
[2022-06-07] MEDS: enoxaparin 40mg/0.4ml syringe SUBCUT SCH (20:52)
[2022-06-07] MEDS: doxepin 10mg capsule PO SCH (20:52)
[2022-06-08] VITALS (19 sets, daily range): BP systolic 95–163; BP diastolic 50–91
[2022-06-08] MEDS: metoprolol tartrate 25mg tablet PO SCH ×4 (02:09→20:00)
[2022-06-08 03:02] LABS: BASOPHILS % (AUTO) 0.4 % (0-1); EOSINOPHILS # (AUTO) 0.3 X10'3 (0-0.9); EOSINOPHILS % (AUTO) 3.8 % (0-6); HEMATOCRIT 34.9 % (35.0-45.0); HEMOGLOBIN 11.7 g/dl (12.0-16.0); LYMPHOCYTES # (AUTO) 1.9 X10'3 (1.1-4.8); LYMPHOCYTES % (AUTO) 22.1 % (21-51); MEAN CORPUSCULAR HEMOGLOBIN 30.9 PG (27.0-31.0); MEAN CORPUSCULAR HGB CONC 33.4 g/dL (33.0-36.5); MEAN CORPUSCULAR VOLUME 92.3 FL (78-98); MEAN PLATELET VOLUME 9.3 FL (7.4-10.4); MONOCYTES # (AUTO) 0.5 X10'3 (0-0.9); MONOCYTES % (AUTO) 5.8 % (2-12); NEUTROPHILS # (AUTO) 5.9 X10'3 (1.8-7.7); NEUTROPHILS % (AUTO) 67.9 % (42-75); PLATELET COUNT 174 X10'3 (140-440); RED BLOOD COUNT 3.78 X10'6 (4.20-5.60); RED CELL DISTRIBUTION WIDTH 17.4 % (11.5-14.5); WHITE BLOOD COUNT 8.7 X10'3 (4.5-11.0)
[2022-06-08] MEDS: HYDROmorphone 1mg tablet (1/2 of 2mg tablet) PO PRN ×2 (03:06→07:30)
[2022-06-08 03:11] LABS: ALANINE AMINOTRANSFERASE 22 U/L (12-78); ALBUMIN/GLOBULIN RATIO 0.9 (1.1-1.5); ALKALINE PHOSPHATASE 131 IU/L (46-116); ANION GAP 5 (8-16); ASPARTATE AMINO TRANSFERASE 19 U/L (10-37); BILIRUBIN,TOTAL 0.5 MG/DL (0.1-1.0); BLOOD UREA NITROGEN 16 MG/DL (7-18); BUN/CREATININE RATIO 22.5 (10.0-20.0); CALCIUM 9.3 MG/DL (8.5-10.1); CHLORIDE 100 MMOL/L (99-107); CREATININE 0.71 MG/DL (0.40-0.90); GLUCOSE 92 MG/DL (70-104); MAGNESIUM 2.1 MG/DL (1.5-2.4); PHOSPHORUS 3.1 MG/DL (2.3-4.5); POTASSIUM 4.1 MMOL/L (3.5-5.1); SODIUM 134 MMOL/L (135-145); TOTAL CARBON DIOXIDE 29.2 MMOL/L (24-32); TOTAL PROTEIN 6.3 G/DL (6.4-8.2); eGFR 84 ML/MIN
--- NOTE | 2022-06-08 06:12 | NUR ---
Problems reprioritized. Patient report given, questions answered & plan of care reviewed with TITI De La O.
--- NOTE | 2022-06-08 06:18 | NUR ---
Patient in room CICU 2012. I have received report from Avis WALSL and had the opportunity to ask questions and assume patient care.
[2022-06-08 06:32] LABS: APTT 28 SECONDS (22-32)
[2022-06-08] MEDS: NORepinephrine 8mg/ 250ml NS 250 ML IV SCH (06:44)
[2022-06-08] MEDS: PALIPERIDONE 3 MG TAB.ER.24 PO SCH (07:29)
[2022-06-08] MEDS: baclofen 10mg tablet PO SCH ×3 (07:29→20:00)
[2022-06-08] MEDS: atorvastatin 10mg tablet PO SCH (07:29)
[2022-06-08] MEDS: docusate sod 100mg capsule PO SCH ×2 (07:29→20:00)
[2022-06-08] MEDS: allopurinol 100mg tablet PO SCH (07:30)
[2022-06-08] MEDS: diltiazem CD 120mg capsule (once-daily) PO SCH (08:28)
[2022-06-08] MEDS: K and/or MAG REPLACEMENT MC SCH ×2 (08:56→20:00)
--- NOTE | 2022-06-08 09:00 | NUR ---
Patient walked from room to 2006 down to 2016 and back to room
[2022-06-08] MEDS ORDERED: HYDROmorphone 2mg tablet PO PRN (09:48)
--- NOTE | 2022-06-08 10:14 | NUR ---
Rounds note, was unable to discuss, labs, meds and assessment Dr. Virk stated that he has "signed off on the patient" transfer to PCU or MS no tele
[2022-06-08] MEDS ORDERED: HYDROmorphone 1 mg/ml syringe IV PRN (11:15)
[2022-06-08] MEDS: HYDROmorphone 1 mg/ml syringe IV PRN ×3 (11:41→20:01)
[2022-06-08] MEDS: levoFLOXACIN 750MG TABLET PO SCH (11:41)
--- NOTE | 2022-06-08 13:00 | NUR ---
patient walked 100 feet unassisted
--- NOTE | 2022-06-08 13:37 | NUR ---
paged Dr. Elam Patient in 2011 Charleen Kovacs is requesting to have her lasix restarted and would like some mirilax
--- NOTE | 2022-06-08 13:47 | NUR ---
patient complaining of gas pains requested to have mirilax added to her emar profile, walked patient to see if walking would help with her gas pains. Offered patient milk of magnesia, she stated that the last time she took it, it made her throat swell. Called pharmacy to have it taken off her emar. She is also requesting that her "water pill" be started again. Patient has +[address] Ojeda for new orders regarding mirilax and continuing her lasix
--- NOTE | 2022-06-08 13:52 | NUR ---
Dr. Elam by to evaluate patient, informed patient the she will restart meds
[2022-06-08] MEDS ORDERED: polyethylene glycol 3350 17gm powd pack PO ONE (13:55)
--- NOTE | 2022-06-08 14:39 | NUR ---
walked patient 250 feet
[2022-06-08] MEDS: furosemide 40mg tablet PO SCH (14:42)
[2022-06-08] MEDS: hydrOXYzine 25 MG tablet PO PRN ×2 (14:47→20:57)
--- NOTE | 2022-06-08 17:26 | NUR ---
Problems reprioritized. Patient report given, questions answered & plan of care reviewed with Ann VICTORIA.
--- NOTE | 2022-06-08 17:27 | NUR ---
report recieved from candy WALLS, pt brought up to 4020B via wheelchair with all belongings. Pt oriented to room and unit. VSS, skin CDI, no complaints noted
--- NOTE | 2022-06-08 18:15 | NUR ---
Problems reprioritized. Patient report given, questions answered & plan of care reviewed with Sandra WALLS.
[2022-06-08] MEDS: enoxaparin 40mg/0.4ml syringe SUBCUT SCH (19:59)
[2022-06-08] MEDS: doxepin 10mg capsule PO SCH (20:57)
[2022-06-08] MEDS ORDERED: polyethylene glycol 3350 17gm powd pack PO SCH (21:00)
[2022-06-09] MEDS: HYDROmorphone 1 mg/ml syringe IV PRN ×2 (00:20→04:21)
[2022-06-09 02:00] VITALS: BP 129/54
[2022-06-09] MEDS: metoprolol tartrate 25mg tablet PO SCH ×3 (02:29→13:30)
[2022-06-09 06:00] VITALS: BP 137/77
--- NOTE | 2022-06-09 06:21 | NUR ---
Problems reprioritized. Patient report given, questions answered & plan of care reviewed with TITI COVINGTON AND WESLEY RN. Addendum: 06/09/22 at 0633 by Sandra Gomes RN REPORT GIVEN TO TITI SHELDON
[2022-06-09 06:37] LABS: BASOPHILS % (AUTO) 0.4 % (0-1); EOSINOPHILS # (AUTO) 0.5 X10'3 (0-0.9); EOSINOPHILS % (AUTO) 5.2 % (0-6); HEMATOCRIT 36.8 % (35.0-45.0); HEMOGLOBIN 12.3 g/dl (12.0-16.0); LYMPHOCYTES # (AUTO) 1.8 X10'3 (1.1-4.8); LYMPHOCYTES % (AUTO) 17.4 % (21-51); MEAN CORPUSCULAR HEMOGLOBIN 30.9 PG (27.0-31.0); MEAN CORPUSCULAR HGB CONC 33.5 g/dL (33.0-36.5); MEAN CORPUSCULAR VOLUME 92.3 FL (78-98); MEAN PLATELET VOLUME 9.5 FL (7.4-10.4); MONOCYTES # (AUTO) 0.6 X10'3 (0-0.9); MONOCYTES % (AUTO) 5.7 % (2-12); NEUTROPHILS # (AUTO) 7.2 X10'3 (1.8-7.7); NEUTROPHILS % (AUTO) 71.3 % (42-75); PLATELET COUNT 176 X10'3 (140-440); RED BLOOD COUNT 3.99 X10'6 (4.20-5.60); RED CELL DISTRIBUTION WIDTH 16.7 % (11.5-14.5); WHITE BLOOD COUNT 10.1 X10'3 (4.5-11.0)
--- NOTE | 2022-06-09 06:53 | NUR ---
Patient in room ORTHO 4020. I have received report from Henry WALLS and had the opportunity to ask questions and assume patient care.
[2022-06-09 07:07] LABS: ALANINE AMINOTRANSFERASE 21 U/L (12-78); ALBUMIN 3.1 G/DL (3.4-5.0); ALBUMIN/GLOBULIN RATIO 0.9 (1.1-1.5); ALKALINE PHOSPHATASE 140 IU/L (46-116); ANION GAP 8 (8-16); ASPARTATE AMINO TRANSFERASE 25 U/L (10-37); BILIRUBIN,TOTAL 0.6 MG/DL (0.1-1.0); BLOOD UREA NITROGEN 15 MG/DL (7-18); BUN/CREATININE RATIO 18.8 (10.0-20.0); CALCIUM 9.2 MG/DL (8.5-10.1); CHLORIDE 101 MMOL/L (99-107); GLUCOSE 113 MG/DL (70-104); MAGNESIUM 1.9 MG/DL (1.5-2.4); PHOSPHORUS 3.8 MG/DL (2.3-4.5); POTASSIUM 3.8 MMOL/L (3.5-5.1); SODIUM 134 MMOL/L (135-145); TOTAL CARBON DIOXIDE 25.4 MMOL/L (24-32); TOTAL PROTEIN 6.4 G/DL (6.4-8.2); eGFR 73 ML/MIN
--- NOTE | 2022-06-09 07:17 | NUR ---
PAGER ID: [phone] MESSAGE: 1966- Rose Farias: Can we place an order for PT eval? EDUARDA Torrez0 Addendum: 06/09/22 at 0720 by Jessy Jimenez LVN WRONG PATIENT Addendum: 06/09/22 at 0720 by Jessy Jimenez LVN PAGER ID: [phone] MESSAGE: [id number] Pat Kovacs: Pt does not have PO pain meds, only dilaudid, can we try PO? EDUARAD Jiménez [id number]
[2022-06-09] MEDS: K and/or MAG REPLACEMENT MC SCH (08:00)
[2022-06-09] MEDS: docusate sod 100mg capsule PO SCH (08:00)
[2022-06-09] MEDS ORDERED: HYDROcodone/acetaminophen 5mg/325mg tablet PO PRN (08:30)
[2022-06-09] MEDS ORDERED: LEVO750T68 PO (08:33)
[2022-06-09 09:01] VITALS: BP 125/72
--- NOTE | 2022-06-09 09:03 | NUR ---
PAGER ID: [phone] MESSAGE: [id number] Anisha Kovacs: Can I administer suboxone this morning? and then start TID, EDUARDA Jiménez [id number]
[2022-06-09] MEDS: baclofen 10mg tablet PO SCH ×2 (09:07→13:28)
[2022-06-09] MEDS: atorvastatin 10mg tablet PO SCH (09:08)
[2022-06-09] MEDS: diltiazem CD 120mg capsule (once-daily) PO SCH (09:08)
[2022-06-09] MEDS: allopurinol 100mg tablet PO SCH (09:08)
[2022-06-09] MEDS: furosemide 40mg tablet PO SCH (09:09)
[2022-06-09] MEDS: buprenorphine/naloxone 8MG-2MG SUBlingual film SL SCH ×2 (09:30→13:28)
[2022-06-09 10:00] VITALS: BP 130/65
[2022-06-09] MEDS: PALIPERIDONE 3 MG TAB.ER.24 PO SCH (10:07)
[2022-06-09] MEDS: levoFLOXACIN 750MG TABLET PO SCH (11:55)
[2022-06-09 13:30] VITALS: BP_SYST 126
--- NOTE | 2022-06-09 14:00 | NUR ---
Patient appropriate and stable for discharge. Patient AOx4. Discharge paperwork reviewed with patient and mom, education provided to patient and mom, both state understanding. All questions anticipated and addressed. Patient was encouraged to follow up with PCP and merchandise pickup/receiving associate ABO from pharmacy. 2 PIV's removed, cannula intact- patient tolerated well. Patient assisted out of facility via w/c by hospital staff accompanied by patient's mom.
== END 2022-06-09 13:55 | disposition home or self-care (01) | DRG 720 ==
LOC: ER 13:43 → ED HOLD 23:57 → CICU 2S 06-06 01:00 → ORTHO 4S 06-08 17:19
PROVIDERS: ADMIT Internal Medicine Critical Care Medicine; ATTEND Internal Medicine
DX: A41.9 Sepsis, unspecified organism (principal); R65.21 Severe sepsis with septic shock; N17.9 Acute kidney failure, unspecified; E83.39 Other disorders of phosphorus metabolism; I42.9 Cardiomyopathy, unspecified; I50.9 Heart failure, unspecified; Z60.2 Problems related to living alone; M54.9 Dorsalgia, unspecified; R09.02 Hypoxemia; F20.9 Schizophrenia, unspecified; K76.0 Fatty (change of) liver, not elsewhere classified; J98.11 Atelectasis; G89.4 Chronic pain syndrome; K59.00 Constipation, unspecified; E86.0 Dehydration; F41.9 Anxiety disorder, unspecified; B95.2 Enterococcus as the cause of diseases classified elsewhere; K40.90 Unilateral inguinal hernia, without obstruction or gangrene, not specified as recurrent; K42.9 Umbilical hernia without obstruction or gangrene; K44.9 Diaphragmatic hernia without obstruction or gangrene; K75.9 Inflammatory liver disease, unspecified; N18.9 Chronic kidney disease, unspecified; N39.0 Urinary tract infection, site not specified; Z88.2 Allergy status to sulfonamides; Z88.8 Allergy status to other drugs, medicaments and biological substances; Z90.49 Acquired absence of other specified parts of digestive tract; Z79.899 Other long term (current) drug therapy
CPT/HCPCS: 36415; 71045; 74176; 80053; 80305; 81001; 83605; 83690; 83735; 83880; 84100; 84145; 84484; 85025; 85610; 85730; 87040; 87077; 87081; 87088; 87186; 93005; 96365; 96375; 99285; A4615; A6213; A6258; A6402; A6449; C1751; G0378; J0696; J1170; J1200; J1650; J2270; J2310; J2405; J3370; J3490; J7030; J7040; Q0177

== ENCOUNTER 2022-06-24 13:59 | Emergency (ER) | payer MEDICAID ==
[~2022-06-24] VITALS: Ht 149.9 cm; Wt 85.4 kg
[~2022-06-24 13:59] MED LIST changes: +ALLO100T PO; +ATOR10TA70 PO; +BACL10TA2 PO; +BUPR1FIL20 SL; -CEPH-585 PO; +DILT-35 PO; +DOXE10CA3 PO; +FLUT16SP26; +FURO40TA4 PO; +LEVO750T68 PO; +LISI10TA27; +METO25TA6; +METO5TAB7 PO; -ONDA4TAB12 PO; +PALI3TAB5 PO; +POTA-208; +SPIR100T5 PO
[2022-06-24 14:27] LABS: BASOPHILS % (AUTO) 0.3 % (0-1); EOSINOPHILS # (AUTO) 0.3 X10'3 (0-0.9); EOSINOPHILS % (AUTO) 2.9 % (0-6); HEMOGLOBIN 13.3 g/dl (12.0-16.0); LYMPHOCYTES # (AUTO) 1.3 X10'3 (1.1-4.8); LYMPHOCYTES % (AUTO) 12.3 % (21-51); MEAN CORPUSCULAR HEMOGLOBIN 30.9 PG (27.0-31.0); MEAN CORPUSCULAR HGB CONC 33.3 g/dL (33.0-36.5); MONOCYTES # (AUTO) 0.6 X10'3 (0-0.9); MONOCYTES % (AUTO) 5.3 % (2-12); NEUTROPHILS # (AUTO) 8.6 X10'3 (1.8-7.7); NEUTROPHILS % (AUTO) 79.2 % (42-75); PLATELET COUNT 209 X10'3 (140-440); RED CELL DISTRIBUTION WIDTH 16.8 % (11.5-14.5); WHITE BLOOD COUNT 10.8 X10'3 (4.5-11.0)
[2022-06-24 14:37] LABS: ALANINE AMINOTRANSFERASE 30 U/L (12-78); ALBUMIN 3.6 G/DL (3.4-5.0); ALBUMIN/GLOBULIN RATIO 0.9 (1.1-1.5); ALKALINE PHOSPHATASE 163 IU/L (46-116); ANION GAP 10 (8-16); ASPARTATE AMINO TRANSFERASE 23 U/L (10-37); BILIRUBIN,TOTAL 0.3 MG/DL (0.1-1.0); BLOOD UREA NITROGEN 43 MG/DL (7-18); BUN/CREATININE RATIO 39.1 (10.0-20.0); CALCIUM 9.3 MG/DL (8.5-10.1); CHLORIDE 94 MMOL/L (99-107); GLUCOSE 172 MG/DL (70-104); POTASSIUM 3.6 MMOL/L (3.5-5.1); SODIUM 132 MMOL/L (135-145); TOTAL CARBON DIOXIDE 28.4 MMOL/L (24-32); TOTAL PROTEIN 7.4 G/DL (6.4-8.2); eGFR 50 ML/MIN
--- NOTE | 2022-06-24 15:45 | NUR ---
Pt amb to [facility].
[2022-06-24 16:34] VITALS: BP 131/53
== END 2022-06-24 17:05 | disposition home or self-care (01) ==
LOC: ER 14:00
DX: R60.0 Localized edema (principal); R20.0 Anesthesia of skin; N18.9 Chronic kidney disease, unspecified; I50.9 Heart failure, unspecified; Z90.49 Acquired absence of other specified parts of digestive tract; Z60.2 Problems related to living alone; Z88.2 Allergy status to sulfonamides; Z88.8 Allergy status to other drugs, medicaments and biological substances; Z79.899 Other long term (current) drug therapy
CPT/HCPCS: 36415; 80053; 83880; 85025; 93005; 99284; A6449

== ENCOUNTER 2023-11-16 02:24 | Emergency (ER) | payer MEDICAID ==
[~2023-11-16] VITALS: Ht 152.4 cm; Wt 74.1 kg
[2023-11-16 03:12] VITALS: BP 135/107; PULSE 62; RESP 18; TEMP 98.4; O2SAT 98
== END 2023-11-16 03:14 ==
LOC: ER 02:25
DX: Z02.89 Encounter for other administrative examinations (principal); I50.9 Heart failure, unspecified; N18.9 Chronic kidney disease, unspecified; Z88.8 Allergy status to other drugs, medicaments and biological substances; Z88.2 Allergy status to sulfonamides; Z79.899 Other long term (current) drug therapy; Z90.49 Acquired absence of other specified parts of digestive tract; Z60.2 Problems related to living alone
CPT/HCPCS: 99283

== ENCOUNTER 2024-05-24 09:44 | Emergency (ER) | payer MEDICAID ==
[~2024-05-24] VITALS: Ht 152.4 cm; Wt 75.0 kg
[2024-05-24 10:16] LABS: BASOPHILS % (AUTO) 0.1 % (0-1); EOSINOPHILS % (AUTO) 0 % (0-6); HEMATOCRIT 33.4 % (35.0-45.0); HEMOGLOBIN 10.9 g/dl (12.0-16.0); LYMPHOCYTES # (AUTO) 0.8 X10'3 (1.1-4.8); LYMPHOCYTES % (AUTO) 7.2 % (21-51); MEAN CORPUSCULAR HEMOGLOBIN 30.3 PG (27.0-31.0); MEAN CORPUSCULAR HGB CONC 32.6 g/dL (33.0-36.5); MEAN CORPUSCULAR VOLUME 92.8 FL (78-98); MONOCYTES # (AUTO) 0.3 X10'3 (0-0.9); NEUTROPHILS % (AUTO) 89.7 % (42-75); PLATELET COUNT 222 X10'3 (140-440); RED CELL DISTRIBUTION WIDTH 14.7 % (11.5-14.5); WHITE BLOOD COUNT 11.1 X10'3 (4.5-11.0)
[2024-05-24] MEDS ORDERED: tranexamic acid inj. 1,000 MG in normal saline 100ml IV soln 90 ML IV ONE (10:50)
[2024-05-24] MEDS: hydrALAZINE 20mg/ml inj. IV ONE (10:55)
[2024-05-24] MEDS: tranexamic acid 1gm/0.7% sal. 100 ML IV ONE (12:05)
[2024-05-24] MEDS: normal saline 1000ML IV soln IVB ONE (12:05)
[2024-05-24 12:11] LABS: ALANINE AMINOTRANSFERASE 45 U/L (12-78); ALBUMIN/GLOBULIN RATIO 1.1 (1.1-1.5); ALKALINE PHOSPHATASE 175 IU/L (46-116); ANION GAP 14 (8-16); ASPARTATE AMINO TRANSFERASE 43 U/L (10-37); BILIRUBIN,TOTAL 1.1 MG/DL (0.1-1.0); BLOOD UREA NITROGEN 67 MG/DL (7-18); BUN/CREATININE RATIO 41.9 (10.0-20.0); CHLORIDE 100 MMOL/L (99-107); CREATINE KINASE 844 U/L (26-192); GLUCOSE 119 MG/DL (70-104); POTASSIUM 4.3 MMOL/L (3.5-5.1); SODIUM 137 MMOL/L (135-145); TOTAL CARBON DIOXIDE 23.1 MMOL/L (24-32); TOTAL PROTEIN 7.5 G/DL (6.4-8.2); eCRCL 26 ML/MIN; eGFR 33 ML/MIN
[2024-05-24 12:25] LABS: ETHANOL < 10 MG/DL (<10)
[2024-05-24] MEDS ORDERED: levetiracetam inj 1,000 MG in normal saline 100ml IV soln 100 ML IV STA (12:33)
[2024-05-24] MEDS: levetiracetam-NACL1000mg/100ml 100 ML IV STA (12:40)
[2024-05-24] MEDS: ondansetron/PF 4mg/2ml inj IV ONE (12:41)
[2024-05-24 12:57] VITALS: BP 176/77; PULSE 62; RESP 16; TEMP 98.1; O2SAT 100
[2024-05-24 13:08] LABS: APTT 25 SECONDS (22-32); PROTHROMBIN TIME 10.9 SECONDS (9.0-12.0)
== END 2024-05-24 12:59 | disposition short-term general hospital (02) ==
LOC: ER 09:45
DX: I62.00 Nontraumatic subdural hemorrhage, unspecified (principal); N17.9 Acute kidney failure, unspecified; F31.9 Bipolar disorder, unspecified; E86.0 Dehydration; I50.9 Heart failure, unspecified; N18.9 Chronic kidney disease, unspecified; Z88.2 Allergy status to sulfonamides; Z88.8 Allergy status to other drugs, medicaments and biological substances; Z90.49 Acquired absence of other specified parts of digestive tract
CPT/HCPCS: 36415; 70450; 71045; 80053; 80320; 82140; 82550; 82948; 83874; 84484; 85025; 85610; 85730; 93005; 96365; 96375; 99291; J1953; J2405; J3490; J7030; J0360